=== PATIENT | female | born 1995 | race Caucasian/White ===

== ENCOUNTER 2017-04-18 18:41 | Emergency (ER) | payer OTHER ==
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
[2017-04-18] MEDS ORDERED: LET GEL TOPICAL 1 EA SYR TP ONE ×2 (20:33→20:35)
[2017-04-18] MEDS ORDERED: ACETAMINOPHEN 325 MG TAB PO ONE (22:11)
[2017-04-18 22:59] VITALS: BP 110/65; PULSE 64; RESP 16; TEMP 97.9; O2SAT 99
== END 2017-04-18 22:59 | disposition home or self-care (01) ==
DX: S00.83XA Contusion of other part of head, initial encounter (principal); S63.634A Sprain of interphalangeal joint of right ring finger, initial encounter; S80.211A Abrasion, right knee, initial encounter; S40.811A Abrasion of right upper arm, initial encounter; V18.0XXA Pedal cycle driver injured in noncollision transport accident in nontraffic accident, initial encounter; Y92.410 Unspecified street and highway as the place of occurrence of the external cause; Y99.8 Other external cause status; Y93.89 Activity, other specified
CPT/HCPCS: L3925